=== PATIENT | female | born 1965 | race Caucasian/White ===

== ENCOUNTER 2016-10-28 17:56 | Emergency (ER) | payer BC, OTHER ==
[~2016-10-28] VITALS: Ht 167.6 cm; Wt 70.3 kg
[~2016-10-28 17:56] MED LIST: ARMOUR THYROID 60 MG PO; BUPR-79 PO; LORA-741 PO
[2016-10-28 18:05] VITALS: TEMP 36.8; Ht 167.6 cm; Wt 70.3 kg
[2016-10-28] MEDS ORDERED: KETOROLAC TROMETHAMINE 30 MG/ML VIAL IV STA (18:29)
[2016-10-28] MEDS ORDERED: DiphenhydrAMINE HCL 50 MG/ML VIAL IV STA (18:29)
[2016-10-28] MEDS ORDERED: PROCHLORPERAZINE 5 MG/ML 2 ML VIAL IV STA (18:29)
[2016-10-28] MEDS ORDERED: SODIUM CHLORIDE 0.9% 1000ML 1,000 ML IV STA (18:29)
[2016-10-28 19:06] VITALS: O2SAT 96
[2016-10-28 19:07] LABS: BASO % 0.3 %; BASO ABS # 0.02 K/uL (0-0.2); COMPLETE YES; EOS % 2.2 %; HEMATOCRIT 42.2 % (37-47); IG% 0.1 %; LYMPH % 30.8 %; LYMPH ABS # 2.19 K/uL (1.2-3.4); MEAN CELL VOLUME 89.2 fL (80-100); MEAN CORPUSCULAR HEMOGLOBIN 29.6 pg (25-34); MEAN CORPUSCULAR HGB CONC 33.2 g/dl (32-36); MEAN PLATELET VOLUME 10.5 fL (7.4-10.4); MONO % 12.8 %; NEUT % 53.8 %; PLATELET COUNT 240 K/uL (130-400); RED BLOOD COUNT 4.73 M/uL (4.2-5.4); WHITE BLOOD COUNT 7.12 K/uL (4.8-10.8)
--- NOTE | 2016-10-28 19:07 | DIAGNOSTIC IMAGING REPORT ---
CT SCAN OF THE BRAIN WITHOUT IV CONTRAST CLINICAL HISTORY: Headache. COMPARISON STUDY: No priors. TECHNIQUE: Unenhanced axial CT scan of the brain is performed from the vertex to the skull base. Automated dose control exposure was utilized. CT DOSE: 537.48 mGy.cm FINDINGS: Brain parenchyma: The brain parenchyma is normal in appearance. There is no hemorrhage, mass effect, or evidence of acute territorial ischemia by CT criteria. Conrad-white matter is preserved. No extra-axial fluid collection is seen. Ventricles, sulci, cisterns: Normal in configuration. Intracranial vasculature: The visualized intracranial vasculature at the skull base is normal in appearance. Calvarium: Unremarkable. Sinuses and mastoids: The visualized paranasal sinuses are clear. The mastoid air cells are well pneumatized. Orbits: The bony orbits are grossly intact. IMPRESSION: No acute intracranial abnormality. Electronically signed by: Neymar Garrett M.D. 10/28/2016 7:05 PM Dictated Date/Time: 10/28/2016 7:03 PM
[2016-10-28] MEDS ORDERED: BUPR-79 PO (19:15)
[2016-10-28] MEDS ORDERED: BUPRTAB51 PO (19:16)
[2016-10-28] MEDS ORDERED: THY/120 PO (19:26)
[2016-10-28] MEDS ORDERED: LIOT5TAB9 PO (19:27)
[2016-10-28] MEDS ORDERED: DIPH25CA65 PO (19:29)
[2016-10-28] MEDS ORDERED: ACYC200C22 PO (19:31)
[2016-10-28 19:33] LABS: PREG INTERNAL NEGATIVE QC NEG CLEAR BACKGROUND; PREG INTERNAL POSITIVE QC POS CONTROL LINE
[2016-10-28 19:35] LABS: BLOOD UREA NITROGEN 13 mg/dl (7-18); BUN/CREATININE RATIO 17.6 (10-20); C-REACTIVE PROTEIN < 0.29 mg/dl (0-0.29); CARBON DIOXIDE 27 mmol/L (21-32); CHLORIDE 110 mmol/L (98-107); CREATININE 0.76 mg/dl (0.60-1.20); GLUCOSE 110 mg/dl (70-99); POTASSIUM 3.7 mmol/L (3.5-5.1); SODIUM 144 mmol/L (136-145)
[2016-10-28 19:59] LABS: LYME DISEASE AB IGG NEG (NEG); LYME DISEASE AB IGM NEG (NEG)
[2016-10-28] MEDS ORDERED: NORCO 5/325MG HOME PACK PO ONE (21:00)
[2016-10-28 21:48] VITALS: BP 118/66; PULSE 78; O2SAT 99
--- NOTE | 2016-10-29 01:56 | EMERGENCY ROOM VISIT NOTE ---
History Report prepared by Alyssa: Oni Palomino Under the Supervision of: Dr. Regan Dan M.D. First contact with patient: 18:24 Chief Complaint: HEADACHE Stated Complaint: HEADACHE,NECK CANT MOVE HEAD W/O PAIN History of Present Illness The patient is a 51 year old female who presents to the Emergency Room with complaints of a constant headache beginning three weeks ago. She states that the pain is present throughout her entire head. She also complains of neck pain and stiffness with rotating her head that started a few days ago. The patient rates her pain as an 8/10 at worst, but states that it currently is a 6/10 in severity. She states that her pain came on gradually. She also complains of lack of appetite. The patient has a previous history of migraines, but has not had them in over a year. She states that she had the migraines for 10-15 years before they stopped. The patient states that her current headache does not feel like her previous migraines. She took Imitrex for her symptoms, but is not sure if it improved her symptoms and she fell asleep. She did wake up with her headache. She took another Imitrex shortly prior to arrival, which she believes improved her headache. The patient notes that she had an episode of difficulty speaking associated with increased pain in her head earlier today. Pt denies LOC , fevers, chills, visual changes, thunder clap or sudden onset of headache, carbon monoxide exposure, ear problems/hearing loss, sinus congestion/recent infection, chest pain, breathing difficulties, vomiting, abdominal pain, urinary symptoms, numbness, weakness, numbness, tingling, lymphadenopathy, rash , or other complaints. She has a history of hypothyroidism, anxiety and depression. She has no history of Lyme disease and states that she has not been outside more than usual lately. Source of History: patient Onset: three weeks ago Position: head (entire head) Timing: constant Associated Symptoms: + neck pain (stiffness with rotation), No abdominal pain, No fevers, No nausea, No vomiting Review of Systems See HPI for pertinent positives and negatives. A total of ten systems were reviewed and were otherwise negative. Past Medical & Surgical Medical Problems: (1) Depression (2) Hypothyroid (3) Migraine Family History No pertinent family history stated. Social History Smoking Status: Never Smoker Current/Historical Medications Scheduled Bupropion (Wellbutrin Sr), 150 MG PO DAILY Bupropion (Wellbutrin-Xl), 300 MG PO DAILY Liothyronine Sodium (Liothyronine Sodium), 15 MCG PO DAILY Lorazepam (Ativan), 0.5 MG PO TID PRN Thyroid ([place] Thyroid), 240 MG PO DAILY Scheduled PRN Acyclovir (Zovirax), 400 MG PO BID PRN for FLAIR-UPS Diphenhydramine Hcl (Benadryl Allergy), 25 MG PO Q6H PRN for Itching Allergies Coded Allergies: Animal Dander (Unverified Allergy, Mild, 10/28/16) Banana (Unverified Allergy, Mild, 10/28/16) Josee Nut (Unverified Allergy, Mild, 10/28/16) Oily Fish (Unverified Allergy, Mild, 10/28/16) Physical Exam Vital Signs Date Time Temp Pulse Resp B/P Pulse Ox O2 Delivery O2 Flow Rate FiO2 10/28/16 21:48 78 18 118/66 99 Room Air 10/28/16 20:37 92 18 116/69 97 Room Air 10/28/16 19:06 104 18 128/75 96 Room Air 10/28/16 19:06 96 Room Air 10/28/16 18:05 36.8 114 18 137/79 97 Room Air Physical Exam GENERAL: Awake, alert, uncomfortable-appearing, no distress HENT: Normocephalic, atraumatic. TM's normal. Oropharynx unremarkable. EYES: PERRL. EOMI. Normal conjunctiva. Sclera non-icteric. NECK: Supple. No nuchal rigidity. FROM. No JVD or bruit. RESPIRATORY: CTA CARDIAC: Borderline tachycardic rate with a regular rhythm. No murmur. ABDOMEN: Soft, non distended. No tenderness to palpation. No rebound or guarding. No masses. RECTAL: Deferred. MUSCULOSKELETAL: Unremarkable. No edema. No discoloration. Gross motor strength symmetric. NEURO: Cranial nerves 2-12 grossly intact. Normal sensorium. No sensory or motor deficits noted. Speech normal. No pronator drift. SKIN: No rash or jaundice noted. LYMPH: No adenopathy. Medical Decision & Procedures ER Provider Diagnostic Interpretation: CT: Radiology results as stated below per my review and radiologist interpretation CT SCAN OF THE BRAIN WITHOUT IV CONTRAST FINDINGS: Brain parenchyma: The brain parenchyma is normal in appearance. There is no hemorrhage, mass effect, or evidence of acute territorial ischemia by CT criteria. Conrad-white matter is preserved. No extra-axial fluid collection is seen. Ventricles, sulci, cisterns: Normal in configuration. Intracranial vasculature: The visualized intracranial vasculature at the skull base is normal in appearance. Calvarium: Unremarkable. Sinuses and mastoids: The visualized paranasal sinuses are clear. The mastoid air cells are well pneumatized. Orbits: The bony orbits are grossly intact. IMPRESSION: No acute intracranial abnormality. Electronically signed by: Neymar Garrett M.D. Laboratory Results 10/28/16 18:50 Red Blood Count 4.73, Mean Corpuscular Volume 89.2, Mean Corpuscular Hemoglobin 29.6, Mean Corpuscular Hemoglobin Concent 33.2, Mean Platelet Volume 10.5, Neutrophils (%) (Auto) 53.8, Lymphocytes (%) (Auto) 30.8, Monocytes (%) (Auto) 12.8, Eosinophils (%) (Auto) 2.2, Basophils (%) (Auto) 0.3, Neutrophils # (Auto ) 3.83, Lymphocytes # (Auto) 2.19, Monocytes # (Auto) 0.91, Eosinophils # (Auto ) 0.16, Basophils # (Auto) 0.02 10/28/16 18:50 Test 10/28/16 18:50 White Blood Count 7.12 K/uL (4.8-10.8) Red Blood Count 4.73 M/uL (4.2-5.4) Hemoglobin 14.0 g/dL (12.0-16.0) Hematocrit 42.2 % (37-47) Mean Corpuscular Volume 89.2 fL (80-100) Mean Corpuscular Hemoglobin 29.6 pg (25-34) Mean Corpuscular Hemoglobin Concent 33.2 g/dl (32-36) Platelet Count 240 K/uL (130-400) Mean Platelet Volume 10.5 fL (7.4-10.4) Neutrophils (%) (Auto) 53.8 % Lymphocytes (%) (Auto) 30.8 % Monocytes (%) (Auto) 12.8 % Eosinophils (%) (Auto) 2.2 % Basophils (%) (Auto) 0.3 % Neutrophils # (Auto) 3.83 K/uL (1.4-6.5) Lymphocytes # (Auto) 2.19 K/uL (1.2-3.4) Monocytes # (Auto) 0.91 K/uL (0.11-0.59) Eosinophils # (Auto) 0.16 K/uL (0-0.5) Basophils # (Auto) 0.02 K/uL (0-0.2) RDW Standard Deviation 39.7 fL (36.4-46.3) RDW Coefficient of Variation 12.2 % (11.5-14.5) Immature Granulocyte % (Auto) 0.1 % Immature Granulocyte # (Auto) 0.01 K/uL (0.00-0.02) Erythrocyte Sedimentation Rate 13 mm/hr (0-21) Anion Gap 7.0 mmol/L (3-11) Est Creatinine Clear Calc Drug Dose 81.0 ml/min Estimated GFR () 104.5 Estimated GFR (Non- 90.2 BUN/Creatinine Ratio 17.6 (10-20) Calcium Level 9.0 mg/dl (8.5-10.1) C-Reactive Protein < 0.29 mg/dl (0-0.29) Human Chorionic Gonadotropin, Qual NEG (NEG) Lyme Disease IgG Antibody NEG (NEG) Lyme Disease IgM Antibody NEG (NEG) Laboratory results reviewed by me Medications Administered Medications (Trade) Dose Ordered Sig/Ondina Route Start Time Stop Time Status Last Admin Dose Admin Prochlorperazine Edisylate 10 mg 10 mg NOW STAT IV 10/28/16 18:29 10/28/16 18:33 DC 10/28/16 18:43 10 MG Sodium Chloride (Nss 1000ml) 1,000 ml @ 999 mls/hr Q1H1M STAT IV 10/28/16 18:29 10/28/16 19:29 DC 10/28/16 18:44 999 MLS/HR Ketorolac Tromethamine (Toradol Inj) 30 mg NOW STAT IV 10/28/16 18:29 10/28/16 18:33 DC 10/28/16 18:44 30 MG Diphenhydramine HCl (Benadryl Inj) 25 mg NOW STAT IV 10/28/16 18:29 10/28/16 18:33 DC 10/28/16 18:44 25 MG Acetaminophen/ Hydrocodone Bitart ([place] 5/325mg Home Pack) 1 [facility] UD ONCE PO 10/28/16 21:00 10/28/16 21:01 DC 10/28/16 21:35 1 [facility] ED Course 1824: The patient was evaluated in room A12B. A complete history and physical exam was performed. 1828: Ordered Benadryl Inj 25 mg IV, Toradol Inj 30 mg IV, Sodium Chloride 1000 ml @ 999 mls/hr IV, Compazine Inj 10 mg IV. 1916: I reassessed the patient. She is feeling better. 2049: I reevaluated the patient. She is feeling much better. Her headache is nearly resolved, though she still feels some muscle tension in her neck. We discussed additional testing (MRI, lumbar puncture), but the patient feels comfortable with going home. Discussed results and discharge instructions: she verbalized understanding and agreement. 2100: The patient is ready for discharge. Ordered [place] 5/325 mg home pack PO. Medical Decision Triage Nursing notes reviewed. The patient's presentation and history were concerning for headache. Etiologies such as migraine, tumor, headache, sinus thrombosis, temporal arteritis, sinusitis, CVA, ICH, SAH, infection, as well as others were entertained. The patient was evaluated. She was mildly uncomfortable and slightly tachycardic. She was mildly anxious as well. The patient had no focal neurologic findings on examination and no appreciable nuchal rigidity. She was afebrile. She had no recent flulike symptoms. There is no thunderclap onset of the headache. She notes never having any imaging performed in the past. An IV was established. The patient was given Toradol, Compazine, Benadryl, and 1 L of normal saline. She was sent to CT for imaging. This was negative. On reassessment the patient was doing much better. She had minimal headache symptoms and her neck was much improved as well. She has no fever. She has a normal white blood cell count. Her ESR and CRP are negative. Lyme testing was negative as well. Electrolytes were unremarkable. Clinically the patient looks well. She had a nonfocal examination. The patient's had symptoms going on 3 weeks now. There was no thunderclap onset. By history there is nothing to suggest dissection, infection, or intracranial bleeding. I discussed additional testing versus conservative management. The patient feels comfortable with conservative management and deferring MRI or lumbar puncture to a later time if necessary. The patient will be given a home pack of hydrocodone if she has any increasing symptoms this evening she can use it. If she worsens, develops fever, or any other problems she will come back to the emergency department immediately. I did say if this occurs that additional diagnostic testing will be likely and the patient understands. She will need close outpatient follow-up. Patient was in agreement.I gave my usual and customary discussion regarding this issue. By the evaluation outlined above other emergent etiologies such as those listed in the differential, as well as others, were deemed relatively unlikely. The patient was informed about the findings as listed above. All questions were answered and she was pleased with the treatment. Return instructions were outlined and the patient was discharged in stable condition. The patient was referred to her PCP for follow-up for a recheck of the current condition. The chart was completed utilizing [employer] Speech voice recognition software. Grammatical errors, random word insertions, pronoun errors, and incomplete sentences are an occasional consequence of this system due to software limitations, ambient noise, and hardware issues. Any formal questions or concerns about the content, text, or information contained within the body of this dictation should be directly addressed to the physician for clarification. [place] Drug Monitoring Program Search Results: patient reviewed within database, no issues identified Impression Primary Impression: Headache Scribe Attestation The scribe's documentation has been prepared under my direction and personally reviewed by me in its entirety. I confirm that the note above accurately reflects all work, treatment, procedures, and medical decision making performed by me. Departure Information Dispostion Home / Self-Care Referrals Shanti Fontenot MD (PCP) Forms HOME CARE DOCUMENTATION FORM, IMPORTANT VISIT INFORMATION Patient Instructions My [facility] Additional Instructions HEADACHE INSTRUCTIONS: DO NOT drive, drink alcohol, operate machinery, or perform dangerous activities today. You were given medications in the ER that can affect your ability to safely function or operate a vehicle. Rest today in a quiet, peaceful, dark environment and get a full 8-10 hrs of sleep tonight. Avoid loud noises, smoke/smoking, alcohol, bright lights, stress, or physical exertion today to minimize the chance the headache may return. Continue current medications. Ibuprofen(Motrin, Advil) may be used for fever or pain. Use 600mg every six hours as needed. Take with food. Avoid using more than 2400mg in a 24 hour period. Do not use 2400mg per day for more than three consecutive days without physician direction. Prolonged inappropriate use can lead to stomach upset or ulcers. Hydrocodone/acetaminophen 5/325mg: Take 1-2 pills every 6 hours as needed for pain. Avoid additional Acetaminophen/Tylenol, alcohol, operating machinery or dangerous equipment, working on ladders or roofs, DRIVING, or situations where being under the influence may be dangerous. Warm compresses for 20 minutes at a time four times daily as needed for sore muscles. Return to the ER for passing out, worsening headache, vision problems, neck stiffness/pain, fevers, vomiting, worsening of your condition, or as needed. Follow up with your primary physician in 2-3 days for a recheck of your current condition.
== END 2016-10-28 21:49 | disposition home or self-care (01) ==
LOC: C.EDB 17:58 → C.EDA 21:49
DX: R51 Headache (principal); E03.9 Hypothyroidism, unspecified; F32.9 Major depressive disorder, single episode, unspecified; F41.9 Anxiety disorder, unspecified; Z79.899 Other long term (current) drug therapy; R00.0 Tachycardia, unspecified

== ENCOUNTER → 2016-10-29 | Outpatient (CLI) | payer BC ==
[~2016-10-29] MED LIST changes: +ACYC200C22 PO; +BUPRTAB51 PO; +DIPH25CA65 PO; +LIOT5TAB9 PO; +THY/120 PO
--- NOTE | 2016-10-30 14:34 | MAMMOGRAPHY REPORT ---
BILATERAL DIGITAL SCREENING MAMMOGRAM TOMOSYNTHESIS WITH CAD: 10/29/2016 CLINICAL HISTORY: Routine screening examination. TECHNIQUE: Breast tomosynthesis in addition to standard 2D mammography was performed. Current study was also evaluated with a Computer Aided Detection (CAD) system. COMPARISON: Comparison is made to exams dated: 10/26/2015 mammogram, 08/16/2014 mammogram, 07/09/2013 m ammogram, 11/25/2011 ultrasound, 12/18/2009 mammogram, and 03/07/2011 mammogram - [facility]. BREAST COMPOSITION: The tissue of both breasts is heterogeneously dense, which may obscure small ma sses. FINDINGS: A grouping of punctate monomorphic microcalcifications in the lateral left breast appears similar dating back to at least 03/07/2011, therefore likely benign. No new suspicious mass, reji ectural distortion or cluster of new, suspicious microcalcifications is seen. IMPRESSION: ACR BI-RADS CATEGORY 1: NEGATIVE There is no mammographic evidence of malignancy. A 1 year screening mammogram is recommended. The p atient will receive written notification of the results. Approximately 10% of breast cancers are not detected with mammography. A negative mammographic repor t should not delay biopsy if a clinically suggestive mass is present. Makayla Bridges M.D. ay/:10/29/2016 18:17:49 Denial Resolution Specialist: Shayla LERMA(Sebas)(Davi), [facility] letter sent: Normal 1/2 BI-RADS Code: ACR BI-RADS Category 1: Negative
== END | disposition home or self-care (01) ==
LOC: C.MAMM 08:42
PROVIDERS: ATTEND Family Medicine
DX: Z12.31 Encounter for screening mammogram for malignant neoplasm of breast (principal)

== ENCOUNTER → 2017-10-30 | Outpatient (CLI) | payer OTHER ==
[~2017-10-30] MED LIST changes: -ARMOUR THYROID 60 MG PO
--- NOTE | 2017-10-30 14:44 | MAMMOGRAPHY REPORT ---
BILATERAL DIGITAL SCREENING MAMMOGRAM TOMOSYNTHESIS WITH CAD: 10/30/2017 CLINICAL HISTORY: Routine screening. Patient has no complaints. TECHNIQUE: Breast tomosynthesis in addition to standard 2D mammography was performed. Current study was also evaluated with a Computer Aided Detection (CAD) system. COMPARISON: Comparison is made to exams dated: 10/29/2016 mammogram, 10/26/2015 mammogram, 08/16/2014 m ammogram, 07/09/2013 mammogram, 11/25/2011 ultrasound, and 11/25/2011 mammogram - [facility] enter. BREAST COMPOSITION: The tissue of both breasts is heterogeneously dense, which may obscure small mas ses. FINDINGS: No suspicious masses, calcifications, or areas of architectural distortion are noted in ei ther breast. There has been no significant interval change compared to prior exams. Small cluster of benign-appearing calcifications in the left 3:00 breast is stable compared to multiple prior exams. IMPRESSION: ACR BI-RADS CATEGORY 2: BENIGN There is no mammographic evidence of malignancy. A 1 year screening mammogram is recommended. The pa tient will receive written notification of the results. Approximately 10% of breast cancers are not detected with mammography. A negative mammographic report should not delay biopsy if a clinically suggestive mass is present. Tami Billingsley M.D. /:10/30/2017 09:30:14 Compensator Worker: Sebas Hudson M, [facility] letter sent: Normal 1/2 BI-RADS Code: ACR BI-RADS Category 2: Benign
== END | disposition home or self-care (01) ==
LOC: C.MAMM 08:59
PROVIDERS: ATTEND Family Medicine
DX: Z12.31 Encounter for screening mammogram for malignant neoplasm of breast (principal)